=== PATIENT | male | born 1990 | race Caucasian/White ===

== ENCOUNTER 2019-11-15 17:03 | Emergency (ER) | payer SELFPAY ==
[2019-11-15 17:10] VITALS: BP 124/76; PULSE 71; TEMP 98; BMI 38.0
--- NOTE | 2019-11-15 19:02 | PDOC ---
History of Present Illness - General Chief Complaint: Back Pain Stated Complaint: BACK PAIN Time Seen by Provider: 11/15/19 19:01 History Source: Patient - History of Present Illness Initial Comments: 11/15/19 19:2 29-year-old male complaining of lower back pain radiating to the right buttocks and legs. Patient reported that he took a long walk more than a mile the other day unsure if that is the cause of his pain. 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 Denies numbness or tingling to the lower extremity, denies incontinence of bowel and urine, Past History - Past Medical History Allergies/Adverse Reactions: Allergies Allergy/AdvReac Type Severity Reaction Status Date / Time No Known Allergies Allergy Verified 11/15/19 17:10 Home Medications: Ambulatory Orders Cyclobenzaprine HCl [Flexeril -] 10 mg PO HS PRN #7 tablet 11/15/19 Ibuprofen 600 mg PO QID PRN #20 tablet 11/15/19 COPD: No - Psycho Social/Smoking Cessation Hx Smoking History: Current every day smoker Number of Cigarettes Smoked Daily: 20 Information on smoking cessation initiated: No Review of Systems - Review of Systems Able to Perform ROS?: Yes Is the patient limited American proficient: No Constitutional: No: Symptoms Reported, See HPI, Chills, Diaphoresis, Fever, Loss of Appetite, Malaise, Night Sweats, Weakness, Weight Stable, Unintentional Wgt. Loss, Unexplained wgt Loss, Other Musculoskeletal: Yes: Back Pain. No: Symptoms Reported, See HPI, Gout, Joint Pain, Joint Swelling, Muscle Pain, Muscle Weakness, Neck Pain, Joint Stiffness, Other *Physical Exam - Vital Signs Last Vital Signs Temp Pulse Resp BP Pulse Ox 98 F 71 18 124/76 98 11/15/19 17:07 11/15/19 17:07 11/15/19 17:07 11/15/19 17:07 11/15/19 17:07 - Physical Exam General Appearance: Yes: Appropriately Dressed Musculoskeletal: positive: Muscle Spasm. negative: CVA Tenderness, Vertebral Tenderness Extremity: positive: Normal Range of Motion, Other (pain worse with movement) Integumentary: positive: Normal Color, Dry, Warm Medical Decision Making - Medical Decision Making Back pain P: nsaids flexeril Discharge - Discharge Information Problems reviewed: Yes Clinical Impression/Diagnosis: Back pain Qualifiers: Back pain location: low back pain Chronicity: acute Back pain laterality: right Sciatica presence: with sciatica Sciatica laterality: sciatica of right side Qualified Code(s): M54.41 - Lumbago with sciatica, right side Condition: Improved Disposition: HOME - Additional Discharge Information Prescriptions: Cyclobenzaprine HCl [Flexeril -] 10 mg PO HS PRN #7 tablet PRN Reason: Muscle Spasms Ibuprofen 600 mg PO QID PRN #20 tablet PRN Reason: Back Pain - Follow up/Referral Referrals: Robert Campbell MD [Staff Physician] - - Patient Discharge Instructions Patient Printed Discharge Instructions: Low Back Pain Additional Instructions: Do light stretches Apply ice to the area for the first 24 hours. Then alternate with ice and heat after. Take ibuprofen every 6 hours as needed for pain. Take Flexeril as prescribed for muscle spasm. Flexeril can make you sleepy, do not drive or operate heavy machinery after taking the medication. Follow-up with an orthopedic doctor if symptoms persist. A referral was given to you today. Return to the emergency room for any worsening symptoms. - Post Discharge Activity Work/Back to School Note: Back to Work
[2019-11-15] MEDS ORDERED: KETOROLAC TROMETHAMINE 30 MG/1 ML VIAL IM ONE (19:09)
[2019-11-15] MEDS ORDERED: KETOROLAC TROMETHAMINE 30 MG/1 ML VIAL ONE (19:14)
== END 2019-11-15 19:50 | disposition home or self-care (01) ==
LOC: JERFT 17:03
PROC: 3E0233Z Introduction of Anti-inflammatory into Muscle, Percutaneous Approach (ICD-10-PCS; principal; 2019-11-15)
DX: M54.41 Lumbago with sciatica, right side (principal)
CPT/HCPCS: 99282-25